=== PATIENT | female | born 1955 | race Caucasian/White ===

== ENCOUNTER 2017-12-01 10:50 | Emergency (ER) | payer OTHER, MEDICAID ==
[~2017-12-01] VITALS: Ht 167.6 cm; Wt 63.5 kg
[~2017-12-01 10:50] MED LIST: ASPIR 8181 MG PO; BENTYL 20 MG TA20 M1 PO; CYMBALTA30 MG PO; CYMBALTA60 MG PO; DUONEB 2.5-0.5 M3 ML INH; FLONASE 0.05%50 MCG NASAL; LEVAQUIN 500 M500 M2 PO; LEVOTHYROXIN0.088 MG PO; LISINOPRIL10 MG PO; MIRALAX17 GM PO; NEURONTIN 400400 M1 PO; NITROGLYCERIN0.4 MG SUBLING; NITROGLYCERIN4.1 GM PO; NORCO 10-325 T1 EACH PO; OCEAN45 ML NASAL; PREDNISONE 10 M10 MG PO; PRILOSEC40 MG PO; PROMETHAZINE12.5 M1 PO; PROMETHAZINE12.5 M4 RE; SIMVASTATIN40 MG PO; TRAZODONE HCL50 MG PO; VENTOLIN HFA 1818 GM INH; WELLBUTRIN SR150 MG PO; WELLBUTRIN XL150 MG PO; ZANAFLEX4 MG PO
[2017-12-01 11:51] LABS: ABSOLUTE LYMPHOCYTES 0.6 thou/uL (0.8-5.3); ABSOLUTE MONOCYTES 0.7 thou/uL (0.0-1.2); ABSOLUTE NEUTROPHILS 3.6 thou/uL (1.6-8.1); BASOPHILS 0.7 %; EOSINOPHILS 0.6 %; HEMATOCRIT 45.2 % (37.0-47.0); HEMOGLOBIN 15.3 gm/dL (12.0-15.0); LYMPHOCYTES 11.9 %; MCH 29.9 pg (26.0-34.0); MCHC 33.8 g/dL (28.0-37.0); MCV 88.4 fL (80.0-100.0); MONOCYTES 14.4 %; MPV 8.8 fl. (7.2-11.1); NUCLEATED RBCS 0 /100WBC; PLATELET COUNT* 210 thou/uL (150-400); POLYS 72.4 %; RBC 5.11 mil/uL (4.20-5.00); RDW-CV 16.4 % (10.5-14.5)
[2017-12-01 11:57] LABS: URINE BLOOD NEGATIVE (Negative); URINE CLARITY CLEAR; URINE COLOR DARK YELLOW; URINE GLUCOSE-RANDOM NEGATIVE (Negative); URINE KETONES TRACE (Negative); URINE LEUKOCYTES-REFLEX NEGATIVE (Negative); URINE NITRITE-REFLEX NEGATIVE (Negative); URINE PROTEIN 1+ (Negative); URINE SPECIFIC GRAVITY >= 1.030 (1.005-1.030)
[2017-12-01 11:58] LABS: URINE BILIRUBIN 1+ (Negative)
[2017-12-01 11:59] LABS: ANION GAP 10 mmol/L (7-16); BUN 6 mg/dL (7-18); CALCIUM 8.8 mg/dL (8.5-10.1); CHLORIDE 101 mmol/L (98-107); CO2 27 mmol/L (21-32); CREATININE 0.8 mg/dL (0.6-1.3); GLUCOSE 127 mg/dL (70-99); POTASSIUM 3.5 mmol/L (3.5-5.1); SODIUM 138 mmol/L (136-145)
[2017-12-01 12:00] LABS: ICTOTEST (BILI CONFIRMATORY) Negative (Negative)
[2017-12-01 12:06] LABS: ALBUMIN 3.6 g/dL (3.4-5.0); ALKALINE PHOSPHATASE 100 U/L (46-116); LIPASE 100 U/L (73-393); SGOT 12 U/L (15-37); SGPT 13 U/L (30-65); TOTAL BILIRUBIN 0.3 mg/dL (<0.1-1.0); TOTAL PROTEIN 7.6 g/dL (6.4-8.2); TROPONIN-I LEVEL <0.06 ng/mL (<0.06)
[2017-12-01] MEDS ORDERED: WELLBUTRIN XL150 MG PO (12:06)
[2017-12-01] MEDS ORDERED: NEURONTIN600 MG PO (12:06)
[2017-12-01 12:25] LABS: INFLUENZA A ANTIGEN None Detected (None Detect); INFLUENZA B ANTIGEN None Detected (None Detect)
[2017-12-01] MEDS ORDERED: ZOFRAN ODT4 MG PO (13:39)
[2017-12-01 14:52] VITALS: BP 93/51
--- NOTE | 2017-12-01 15:01 | EKG ---
[place] [address] ELECTROCARDIOGRAM REPORT Name: TOM CANTU [id number] Admission: 12/01/17 Attend Phys: Discharge: 12/01/17 Date of : 57 Report #: [id number] THIS REPORT FOR: //name// [facility] ED Test Date: 2017-12-01 Test Time: 11:48:31 Pat Name: TOM DEJESUS Department: Room: Gender: F Pastry Cook: Susan WHITLOCK : 1955 Requested By: Nubia Chase Order Number: [id number] MD: Maulik Mims Measurements Intervals [place] Rate: 78 P: 90 MT: 139 QRS: 60 QRSD: 88 T: 70 QT: 386 QTc: 440 Interpretive Statements Sinus rhythm Borderline repolarization abnormality Compared to ECG 01/26/2016 14:24:27 Left ventricular hypertrophy no longer present Electronically Signed On 12-01-2017 15:01:22 [employer]PERVISOR KENNEL by Maulik Mims [email or web address] <ELECTRONICALLY SIGNED> By: Maulik Mims MD, [facility] 12/01/17 1501 1148 [id number] Maulik Mims MD, [facility] /EPI
== END 2017-12-01 14:54 | disposition home or self-care (01) ==
LOC: M.ERS 10:50
PROVIDERS: Nurse Practitioner Family
DX: R11.2 Nausea with vomiting, unspecified (principal); R19.7 Diarrhea, unspecified; R10.84 Generalized abdominal pain; J44.9 Chronic obstructive pulmonary disease, unspecified; I10 Essential (primary) hypertension; M79.7 Fibromyalgia; E78.5 Hyperlipidemia, unspecified; J42 Unspecified chronic bronchitis; Z90.710 Acquired absence of both cervix and uterus; Z90.89 Acquired absence of other organs; Z88.0 Allergy status to penicillin

== ENCOUNTER 2019-04-22 12:48 | Emergency (ER) | payer OTHER ==
[~2019-04-22] VITALS: Ht 167.6 cm; Wt 62.1 kg
[~2019-04-22 12:48] MED LIST changes: +NEURONTIN600 MG PO; +ZOFRAN ODT4 MG PO
[2019-04-22 13:38] LABS: ABSOLUTE BASOPHILS 0.1 thou/uL (0.0-0.2); ABSOLUTE EOSINOPHILS 0.1 thou/uL (0.0-0.7); ABSOLUTE LYMPHOCYTES 1.7 thou/uL (0.8-5.3); ABSOLUTE MONOCYTES 1.5 thou/uL (0.0-1.2); ABSOLUTE NEUTROPHILS 9.2 thou/uL (1.6-8.1); BASOPHILS 0.6 %; EOSINOPHILS 0.8 %; HEMATOCRIT 38.4 % (37.0-47.0); HEMOGLOBIN 12.6 gm/dL (12.0-15.0); LYMPHOCYTES 13.5 %; MCH 28.8 pg (26.0-34.0); MCHC 32.9 g/dL (28.0-37.0); MCV 87.4 fL (80.0-100.0); MONOCYTES 11.9 %; MPV 8.5 fl. (7.2-11.1); NUCLEATED RBCS 0 /100WBC; PLATELET COUNT* 291 thou/uL (150-400); POLYS 73.2 %; RBC 4.39 mil/uL (4.20-5.00); RDW-CV 15.5 % (10.5-14.5); WBC 12.5 thou/uL (4.0-11.0)
[2019-04-22 13:47] LABS: ANION GAP 11 mmol/L (7-16); BUN 7 mg/dL (7-18); CHLORIDE 103 mmol/L (98-107); CO2 27 mmol/L (21-32); GLUCOSE 102 mg/dL (70-99); POTASSIUM 3.6 mmol/L (3.5-5.1); SODIUM 141 mmol/L (136-145)
[2019-04-22 13:57] LABS: ALKALINE PHOSPHATASE 95 U/L (46-116); LIPASE 109 U/L (73-393); NT-PRO BRAIN NAT PEPTIDE 82 pg/mL (<300); SGOT 10 U/L (15-37); SGPT 12 U/L (30-65); TOTAL BILIRUBIN 0.4 mg/dL (<0.1-1.0); TOTAL PROTEIN 7.3 g/dL (6.4-8.2); TROPONIN-I LEVEL <0.06 ng/mL (<0.06)
[2019-04-22] MEDS ORDERED: LEVAQUIN 500 M500 MG PO (16:07)
[2019-04-22] MEDS ORDERED: MEDROL DOSPAK21 TA1 PO (16:07)
[2019-04-22 16:08] VITALS: BP 118/70
--- NOTE | 2019-04-23 14:59 | EKG ---
[place] [address] ELECTROCARDIOGRAM REPORT Name: TOM CANTU [facility] [id number] Admission: 04/22/19 Attend Phys: Discharge: 04/22/19 Date of : 57 Report #: [id number] THIS REPORT FOR: //name// [facility] ED Test Date: 2019-04-22 Test Time: 13:24:16 Pat Name: TOM DEJESUS Department: Room: Gender: F [employer]: : 1955 Requested By: Neil Martel Order Number: [id number] MD: Saurabh Carrero Measurements Intervals [place] Rate: 69 P: 81 TN: 136 QRS: 35 QRSD: 88 T: 62 QT: 405 QTc: 434 Interpretive Statements Sinus rhythm Compared to ECG 12/01/2017 11:48:31 No significant changes Electronically Signed On 04-23-2019 14:59:19 CDT by Saurabh Carrero [email or web address] <ELECTRONICALLY SIGNED> By: Saurabh Carrero MD, [facility] 04/23/19 1459 1324 1324 Saurabh Carrero MD, [facility] /EPI
== END 2019-04-22 16:09 | disposition home or self-care (01) ==
LOC: M.ERS 12:48
PROVIDERS: Emergency Medicine
DX: J44.9 Chronic obstructive pulmonary disease, unspecified (principal); F17.200 Nicotine dependence, unspecified, uncomplicated; I10 Essential (primary) hypertension; M79.7 Fibromyalgia; E78.5 Hyperlipidemia, unspecified; Z90.89 Acquired absence of other organs; Z88.0 Allergy status to penicillin; Z90.710 Acquired absence of both cervix and uterus